=== PATIENT | female | born 1955 | race Caucasian/White ===

== ENCOUNTER → 2016-09-18 | Outpatient (CLI) | payer OTHER ==
[~2016-09-18] MED LIST: ACETAMINOPHEN500 MG PO; ALTACE10 MG PO; ASPIR-LOW81 MG PO; ATARAX,VISTARIL25 MG PO; BREO ELLIPTA I1 EACH IH; CLEOCIN300 MG PO; FISH OIL 1,0001 EAC7 PO; FLOVENT 22120 INHALA IH; GLIPIZIDE5 MG PO; INVOKANA300 MG PO; LEVOTHYROXINE88 MCG PO; NORCO 5/3251 TABLET PO; NORVASC5 MG PO; PHENERGAN-CODE120 ML PO; PRILOSEC20 MG PO; REQUIP5 MG PO; SIMVASTATIN20 MG PO; SYNTHROID100 MCG PO; TYLENOL EXTRA500 MG PO; ULTRAM50 MG PO; VENTOLIN HFA18 GM IH; VITAMIN D1000 UNIT PO; ZOLOFT100 MG PO
== END | disposition home or self-care (01) ==
LOC: CDC 14:55
DX: Z01.810 Encounter for preprocedural cardiovascular examination (principal); K43.2 Incisional hernia without obstruction or gangrene; Z88.3 Allergy status to other anti-infective agents; Z88.8 Allergy status to other drugs, medicaments and biological substances
CPT/HCPCS: 93000

== ENCOUNTER 2016-09-22 05:18 | Inpatient (IN) | payer OTHER ==
[~2016-09-22] VITALS: Ht 152.4 cm; Wt 116.0 kg
[~2016-09-22 05:18] MED LIST changes: -NORCO 5/3251 TABLET PO
[2016-09-22 06:01] VITALS: BP 169/82
[2016-09-22 06:29] LABS: ANION GAP 12 MEQ/L (2-14); CHLORIDE 100 MEQ/L (99-109); POTASSIUM 3.8 MEQ/L (3.7-5.4); SAMPLE HEMOLYSIS CHECK 0; SAMPLE ICTERIC CHECK 0; SAMPLE LIPEMIA CHECK 0; SODIUM 139 MEQ/L (136-147)
[2016-09-22 06:34] LABS: GFR ESTIMATE (CALCULATED) > 59 mL/min/; GLUCOSE 163 mg/dL (70-99); UREA NITROGEN (BUN) 10 mg/dL (9-23)
[2016-09-22 07:38] LABS: BASOPHIL COUNT 0.1 K/uL (0-0.1); EOSINOPHIL (%) 4.4 % (0-5); EOSINOPHIL COUNT 0.4 K/uL (0-0.3); IMMATURE GRANULOCYTE (%) 0.2 % (0.0-0.7); LYMPHOCYTE COUNT 1.7 K/uL (1.0-2.8); MONOCYTE (%) 10.7 % (3-12); NEUTROPHIL (%) 65.2 % (45-76); NEUTROPHIL COUNT 5.8 K/uL (1.8-6.4)
[2016-09-22 07:48] LABS: HEMATOCRIT 45.5 % (36.0-46.0); MCH 24.2 PG (29.0-34.0); MCHC 30.5 G/DL (30.0-36.0); MCV 79.3 FL (83-99); RBC DIS.WIDTH-CV 15.6 % (11.8-14.6); RBC DIS.WIDTH-SD 44.8 % (39-53); RED BLOOD COUNT 5.74 M/uL (3.80-5.20); WHITE BLOOD COUNT 8.9 K/uL (4.1-10.2)
[2016-09-22 08:07] LABS: MEAN PLAT.VOLUME 11.4 uM^3 (9.5-12.4); PLAT.SUFFICIENCY ADEQUATE; PLATELET COUNT 159 K/uL (156-360); USER ID TLW
[2016-09-22] MEDS ORDERED: NORCO 5/3251 TABLET PO (09:57)
[2016-09-22 12:11] VITALS: BP 134/69
[2016-09-22 16:00] VITALS: BP 113/68
[2016-09-22 20:00] VITALS: BP 146/85
[2016-09-22 23:40] VITALS: BP 126/74
[2016-09-23 04:00] VITALS: BP 143/83
[2016-09-23 07:00] VITALS: BP 135/83
[2016-09-23 11:05] VITALS: BP 125/69
[2016-09-23 15:30] VITALS: BP 136/75
[2016-09-24] VITALS: BP 120/61
[2016-09-24 04:00] VITALS: BP 137/72
[2016-09-24 08:25] VITALS: BP 131/69
[2016-09-24 11:15] VITALS: BP 145/81
[2016-09-24 16:00] VITALS: BP 121/78
[2016-09-24 23:29] VITALS: BP 135/63
[2016-09-25 04:00] VITALS: BP 125/78
[2016-09-25 07:10] VITALS: BP 141/74
[2016-09-25 11:05] VITALS: BP 126/68
[2016-09-25 15:37] VITALS: BP 120/66
== END 2016-09-25 19:19 | disposition home or self-care (01) | DRG 982 ==
LOC: SDC → 2SOUTH 09:56 → 2EAST 11:49 → SDC 12:48 → 2EAST 09-23 12:33
PROVIDERS: Anesthesiology; Surgery
DX: R09.02 Hypoxemia (principal); K43.0 Incisional hernia with obstruction, without gangrene; E66.01 Morbid (severe) obesity due to excess calories; Z68.42 Body mass index [BMI] 45.0-49.9, adult; K66.0 Peritoneal adhesions (postprocedural) (postinfection); I10 Essential (primary) hypertension; E78.5 Hyperlipidemia, unspecified; E11.9 Type 2 diabetes mellitus without complications; F32.9 Major depressive disorder, single episode, unspecified; F41.1 Generalized anxiety disorder; E03.9 Hypothyroidism, unspecified; G47.33 Obstructive sleep apnea (adult) (pediatric); K21.9 Gastro-esophageal reflux disease without esophagitis
CPT/HCPCS: 71020; 80048; 82948; 85025; 94010; 94640; 94640 76; 94760; 94799; 99202; C1781; G0378; J0690; J1170; J1720; J1815; J2250; J2405; J2710; J3010; J7120; S0020

== ENCOUNTER 2017-10-08 20:52 | Inpatient (IN) | payer OTHER ==
[~2017-10-08] VITALS: Ht 154.9 cm; Wt 108.3 kg
[~2017-10-08 20:52] MED LIST changes: +NORCO 5/3251 TABLET PO; -VITAMIN D1000 UNIT PO; +VITAMIN D31000 UNI2 PO
[2017-10-08 23:28] LABS: HEMATOCRIT 46.2 % (36.0-46.0); HEMOGLOBIN 14.3 G/DL (11.9-15.5); MCH 24.3 PG (29.0-34.0); MCV 78.4 FL (83-99); PLATELET COUNT 139 K/uL (156-360); RBC DIS.WIDTH-CV 15.3 % (11.8-14.6); RED BLOOD COUNT 5.89 M/uL (3.80-5.20); WHITE BLOOD COUNT 6.8 K/uL (4.1-10.2)
[2017-10-08 23:37] LABS: CHLORIDE 103 mEq/L (99-109); SODIUM 138 mEq/L (136-147)
[2017-10-08 23:38] LABS: GLUCOSE 197 mg/dL (70-99)
[2017-10-08 23:42] LABS: GFR ESTIMATE (CALCULATED) > 59 mL/min/
[2017-10-08 23:43] LABS: UREA NITROGEN (BUN) 14 mg/dL (9-23)
[2017-10-09 00:01] LABS: D-DIMER ELISA < 150.00 ng/mLDDU (<230)
[2017-10-09] MEDS ORDERED: PREDNISONE20 MG PO (01:28)
[2017-10-09] MEDS ORDERED: PANTOPRAZOLE SO40 MG PO (01:29)
[2017-10-09] MEDS ORDERED: IBUPROFEN800 MG PO (01:29)
[2017-10-09] MEDS ORDERED: MONTELUKAST SOD10 MG PO (01:32)
[2017-10-09] MEDS ORDERED: ADVAIR 250/501 DISK IH (01:33)
[2017-10-09] MEDS ORDERED: GLIPIZIDE10 MG PO (01:34)
[2017-10-09] MEDS ORDERED: SERTRALINE HCL100 MG PO (01:35)
[2017-10-09 05:47] VITALS: BP 130/72
[2017-10-09 08:17] VITALS: BP 105/52
[2017-10-09 09:05] LABS: HEMOGLOBIN A1c (GLYCOHEMOGLOB) 7.6 % (Below 5.7)
[2017-10-09 12:06] VITALS: BP 110/54
[2017-10-09 12:20] LABS: APPEARANCE CLEAR ((CLEAR)); BILIRUBIN NEGATIVE; BLOOD NEGATIVE; COLOR YELLOW ((YELLOW)); GLUCOSE (STRIP) >=500; KETONES NEGATIVE; LEUKOCYTES NEGATIVE; NITRITE NEGATIVE; PROTEIN (STRIP) NEGATIVE; SPECIFIC GRAVITY 1.032 (1.000-1.030); UCUL ADDED? NO; UROBILINOGEN 0.2 MG/DL (0.2-1.0)
[2017-10-09 15:57] VITALS: BP 92/66
[2017-10-09 19:46] VITALS: BP 113/67
[2017-10-10 00:48] VITALS: BP 117/71
[2017-10-10 03:49] VITALS: BP 117/68
[2017-10-10 06:27] LABS: HEMATOCRIT 43.1 % (36.0-46.0); HEMOGLOBIN 12.9 G/DL (11.9-15.5); MCH 23.7 PG (29.0-34.0); MCHC 29.9 G/DL (30.0-36.0); MCV 79.2 FL (83-99); PLATELET COUNT 168 K/uL (156-360); RBC DIS.WIDTH-CV 15.8 % (11.8-14.6); RBC DIS.WIDTH-SD 44.5 % (39-53); RED BLOOD COUNT 5.44 M/uL (3.80-5.20); WHITE BLOOD COUNT 9.6 K/uL (4.1-10.2)
[2017-10-10 07:09] LABS: CHLORIDE 102 MEQ/L (99-109); CREATININE 0.9 MG/DL (0.6-1.3); GFR ESTIMATE (CALCULATED) > 59 mL/min/; GLUCOSE 141 mg/dL (70-99); POTASSIUM 4.4 MEQ/L (3.7-5.4); SODIUM 140 MEQ/L (136-147); UREA NITROGEN (BUN) 20 mg/dL (9-23)
[2017-10-10 09:06] VITALS: BP 98/55
[2017-10-10 16:07] VITALS: BP 98/54
[2017-10-10 23:55] VITALS: BP 122/65
[2017-10-11 07:26] VITALS: BP 140/73
[2017-10-11 16:00] VITALS: BP 104/63
[2017-10-11 23:30] VITALS: BP 100/54
[2017-10-12 07:33] VITALS: BP 125/66
[2017-10-12 09:02] LABS: HEMATOCRIT 46.1 % (36.0-46.0); HEMOGLOBIN 13.8 G/DL (11.9-15.5); MCH 23.6 PG (29.0-34.0); MCHC 29.9 G/DL (30.0-36.0); MCV 78.9 FL (83-99); PLATELET COUNT 148 K/uL (156-360); RBC DIS.WIDTH-CV 15.8 % (11.8-14.6); RBC DIS.WIDTH-SD 44.6 % (39-53); RED BLOOD COUNT 5.84 M/uL (3.80-5.20); WHITE BLOOD COUNT 5.9 K/uL (4.1-10.2)
[2017-10-12 09:32] LABS: CHLORIDE 101 MEQ/L (99-109); CREATININE 0.8 MG/DL (0.6-1.3); GFR ESTIMATE (CALCULATED) > 59 mL/min/; GLUCOSE 147 mg/dL (70-99); POTASSIUM 3.9 MEQ/L (3.7-5.4); SODIUM 141 MEQ/L (136-147); UREA NITROGEN (BUN) 16 mg/dL (9-23)
[2017-10-12 15:39] VITALS: BP 112/62
[2017-10-12 23:12] VITALS: BP 119/67
[2017-10-13 07:50] VITALS: BP 128/67
[2017-10-13 16:47] VITALS: BP 108/65
[2017-10-14 00:01] VITALS: BP 131/68
[2017-10-14 06:15] LABS: HEMATOCRIT 43.5 % (36.0-46.0); MCH 23.6 PG (29.0-34.0); MCHC 29.9 G/DL (30.0-36.0); MCV 79.1 FL (83-99); PLATELET COUNT 152 K/uL (156-360); RBC DIS.WIDTH-CV 15.4 % (11.8-14.6); RBC DIS.WIDTH-SD 43.8 % (39-53); WHITE BLOOD COUNT 7.2 K/uL (4.1-10.2)
[2017-10-14 06:34] LABS: CHLORIDE 103 MEQ/L (99-109); CREATININE 0.8 MG/DL (0.6-1.3); GFR ESTIMATE (CALCULATED) > 59 mL/min/; GLUCOSE 113 mg/dL (70-99); MAGNESIUM 2.1 mg/dl (1.3-2.7); POTASSIUM 3.7 MEQ/L (3.7-5.4); SODIUM 139 MEQ/L (136-147); UREA NITROGEN (BUN) 16 mg/dL (9-23)
[2017-10-14 06:38] VITALS: BP 143/75
[2017-10-14] MEDS ORDERED: CEFTIN500 MG PO (14:33)
[2017-10-14] MEDS ORDERED: PREDNISONE10 MG PO (14:33)
[2017-10-14] MEDS ORDERED: PREDNISONE20 MG PO (14:33)
[2017-10-14] MEDS ORDERED: DUONEB 2.5-0.5 M3 ML AEROSOL (14:33)
[2017-10-14] MEDS ORDERED: MUCINEX600 MG PO (14:33)
[2017-10-14] MEDS ORDERED: SPIRIVA RESPIMAT4 GM IH (14:33)
== END 2017-10-14 16:40 | disposition home health service (06) | DRG 194 ==
LOC: EME 20:52 → 2EAST 10-09 03:43 → EDOF 10-09 03:43 → ENRESERV 10-09 03:59 → 2EAST 10-09 05:34
PROVIDERS: Hospitalist; Internal Medicine; Nurse Practitioner Family
DX: J18.9 Pneumonia, unspecified organism (principal); J44.0 Chronic obstructive pulmonary disease with (acute) lower respiratory infection; J45.901 Unspecified asthma with (acute) exacerbation; J44.1 Chronic obstructive pulmonary disease with (acute) exacerbation; E78.00 Pure hypercholesterolemia, unspecified; E66.01 Morbid (severe) obesity due to excess calories; I10 Essential (primary) hypertension; E66.9 Obesity, unspecified; Z68.42 Body mass index [BMI] 45.0-49.9, adult; J20.9 Acute bronchitis, unspecified; G47.33 Obstructive sleep apnea (adult) (pediatric); K21.9 Gastro-esophageal reflux disease without esophagitis; E11.9 Type 2 diabetes mellitus without complications; E03.9 Hypothyroidism, unspecified
CPT/HCPCS: 71046; 80048; 81003; 82948; 83036; 83605; 83735; 85027; 85379; 87040; 87070; 87205; 87502; 93005; 94640; 94640 76; 94644; 94799; 99202; 99281; 99285; J0456; J0696; J1100; J1650; J1815; J2930; J7030; J7512